=== PATIENT | male | born 1970 | race Caucasian/White ===

== ENCOUNTER 2022-09-09 12:57 | Emergency (ER) | payer OTHER ==
[~2022-09-09] VITALS: Ht 185.4 cm; Wt 91.2 kg
[2022-09-09 13:10] VITALS: BP 123/81
--- NOTE | 2022-09-09 13:10 | NUR ---
BIBS W/ C/O LOWER LIP ABSCESS.
--- NOTE | 2022-09-09 13:20 | NUR ---
PT SEEN BY FOR EVLESLIE
[2022-09-09] MEDS ORDERED: SULF1TAB48 PO (13:31)
--- NOTE | 2022-09-09 13:39 | NUR ---
Patient discharged to home in stable condition. Written and verbal after care instructions given. Patient verbalizes understanding of instruction.
== END 2022-09-09 14:02 | disposition home or self-care (01) ==
LOC: ER 13:00
DX: K13.0 Diseases of lips (principal); Z88.8 Allergy status to other drugs, medicaments and biological substances

== ENCOUNTER 2024-04-18 18:01 | Emergency (ER) | payer MEDICAID, OTHER ==
[~2024-04-18] VITALS: Ht 185.4 cm; Wt 90.7 kg
[~2024-04-18 18:01] MED LIST: SULF1TAB48 PO
[2024-04-18 18:40] VITALS: BP 129/77; TEMP 98.7; O2SAT 96
[2024-04-18] MEDS ORDERED: SULF1TAB48 PO (19:39)
[2024-04-18] MEDS ORDERED: IBUP-1957 PO (19:39)
[2024-04-18] MEDS ORDERED: MUPI22OI2 TP (19:39)
[2024-04-18] MEDS ORDERED: IBUPROFEN 600 MG TABLET ONE (19:41)
[2024-04-18] MEDS ORDERED: SULFAMETH/TRIMETH 800/160 MG 1 UDTAB TABLET ONE (19:41)
[2024-04-18] MEDS: IBUPROFEN 600 MG TABLET PO ONE (19:47)
[2024-04-18] MEDS: SULFAMETH/TRIMETH 800/160 MG 1 UDTAB TABLET PO ONE (19:47)
== END 2024-04-18 20:00 | disposition home or self-care (01) ==
LOC: ER 18:55
DX: L73.9 Follicular disorder, unspecified (principal); R51.9 Headache, unspecified; Z79.899 Other long term (current) drug therapy; Z88.1 Allergy status to other antibiotic agents